=== PATIENT | female | born 1975 | race Caucasian/White ===

== ENCOUNTER → 2020-08-06 | Outpatient (CLI) | payer BC | LOC: RAD 09:54 | DX: I82.462 Acute embolism and thrombosis of left calf muscular vein (principal) ==

== ENCOUNTER → 2021-08-06 | Outpatient (CLI) | payer BC | LOC: RAD 08:31 | DX: K44.9 Diaphragmatic hernia without obstruction or gangrene (principal); K21.9 Gastro-esophageal reflux disease without esophagitis | CPT/HCPCS: Q9967 ==